=== PATIENT | female | born 1960 | race Caucasian/White ===

== ENCOUNTER 2017-09-03 06:26 | Day surgery (SDC) | payer BC ==
[~2017-09-03 06:26] MED LIST: Dextrose 5%-0.45% NaCl 1,000 ML IV SCH; Midazolam 1 MG/ML 2 ML SDV ONE; Sodium Chloride 0.9% 10 ML Syringe FLUSH PRN; fentaNYL 100 MCG/2 ML SDV ONE
[2017-09-03] MEDS ORDERED: Midazolam 1 MG/ML 2 ML SDV IV ONE ×4 (06:27→07:28)
[2017-09-03] MEDS ORDERED: fentaNYL 100 MCG/2 ML SDV IV ONE ×3 (06:27→07:26)
--- NOTE | 2017-09-03 13:17 | OR ---
DATE: 09/03/2017 PROCEDURE: Total colonoscopy. INSTRUMENT USED: PCF-H180AL Olympus video colonoscope. PREMEDICATIONS: Fentanyl 100 mcg intravenous, Versed 3 mg intravenous. Nasal O2 cannula. The procedure was done under pulse oximetry, BP recording, and demand planning analyst. INDICATION: The patient with status post left colon resection for adenocarcinoma. Surveillance colonoscopic examination is done for detection of any polypoid lesions and removal, endoscopic hemostasis therapy if needed. DESCRIPTION OF PROCEDURE: Initial rectal exam showed external hemorrhoidal tags. Rigid anoscopy showed small internal hemorrhoids without bleeding from them. The colonoscope was passed with ease. Photograph was taken of the surgical site. The scope was passed with ease up to the ileocecal area, photographs were taken of the normal-appearing cecum identified by landmarks of appendiceal orifice and double-bulged ileocecal folds. No bleeding was noted from any of the visualized areas at the commencement of the examination. No stricture. No vascular ectasia. No large isolated ulcerations seen. No evidence of diffuse inflammatory bowel disease in the form of friability, contact bleeding, or ulcerations. No polyp or tumor mass identified. Probing the proximal sides of folds and flexures, using adequate distention and clearing off the stool material, withdrawal of the scope was made. Cecum to rectum time over 6 minutes. No bleeding was noted from any of the visualized areas at the completion of examination. IMPRESSION: External and internal hemorrhoids. The patient tolerated the procedure well. [facility] /[id number]
--- NOTE | 2017-09-03 13:50 | LETTER ---
09/03/2017 Kimani Waite MD [facility] [address] [place] [address] RE: JEMMA DE : [address] Waite: Ms. Jemma De had colonoscopic examination done this morning and she tolerated the procedure well. I herewith send a copy of the endoscopy note and photographs for your review. Thank you. Sincerely, [facility] /[id number]
== END 2017-09-03 09:42 | disposition home or self-care (01) ==
LOC: DL.ENDO 06:26
PROVIDERS: ATTEND Internal Medicine Gastroenterology
DX: Z12.11 Encounter for screening for malignant neoplasm of colon (principal); K64.8 Other hemorrhoids; K64.4 Residual hemorrhoidal skin tags; Z85.038 Personal history of other malignant neoplasm of large intestine
CPT/HCPCS: 45378; J2250; J3010; J7042

== ENCOUNTER 2019-06-13 06:33 | Day surgery (SDC) | payer BC ==
[2019-06-13] MEDS ORDERED: fentaNYL 100 MCG/2 ML SDV IV ONE ×3 (06:34→07:41)
[2019-06-13] MEDS ORDERED: Midazolam 1 MG/ML 2 ML SDV IV ONE ×3 (06:34→07:42)
--- NOTE | 2019-06-13 14:10 | OR ---
DATE: 06/13/2019 PROCEDURE PERFORMED: Esophagogastroduodenoscopy and multiple pinch biopsies. INSTRUMENT USED: GIF-HQ190 Olympus video panendoscope. PREMEDICATIONS: No oral or topical anesthesia used. Fentanyl 100 mcg intravenous, Versed 2 mg intravenous. Nasal O2 cannula. The procedure was done under pulse oximetry, BP recording, and supervisor wall mirror department. INDICATION: The patient with persistent high dysphagia and dyspepsia unexplained, on long-term aspirin. Esophagogastroduodenoscopy was performed for detection of any active erosive lesions, Phelps esophagus and/or malignancy also under consideration, H. pylori status to be determined, esophageal dilatations if indicated, endoscopic hemostasis therapy if needed. DESCRIPTION OF PROCEDURE: The scope was passed with ease. Adequate visualization of the esophagus was made from proximal to distal areas. No upper esophageal lesions identified. No distal esophageal stricture. No uphill or downhill esophageal varices. No Mackenzie-Vásquez tear. Grade A erosive changes were noted by [place] criteria. No esophageal polyp or tumor mass identified. Some prominent benign-appearing folds were noted at the Z-line, multiple pinch biopsies were obtained and sent for histopathology. No proximal gastric varices noted. Gastric fundus examination by retroflexion showed no malignant lesions. In the mid gastric body, diminutive benign-appearing polyp was noted, photograph was taken, multiple pinch biopsies were obtained. No gastric ulcer, malignant mass, or vascular ectasia identified. Multiple pinch biopsies were taken from the gastric antrum and proximal body and sent for PyloriTek test for H. pylori and histopathology. Duodenal bulb showed no ulcer. Visualized second part of the duodenum unremarkable. No bleeding was noted from any of the visualized areas at the completion of examination. Photographs were taken of the duodenal bulb, gastric antrum, fundus, and distal esophagus. IMPRESSION: 1. Grade A gastroesophageal reflux disease. 2. Diminutive gastric body polyp. The patient tolerated the procedure well. [facility] /[id number]
== END 2019-06-13 09:58 | disposition home or self-care (01) ==
LOC: DL.ENDO 06:33
PROVIDERS: ATTEND Internal Medicine Gastroenterology
DX: K21.0 Gastro-esophageal reflux disease with esophagitis (principal); K25.9 Gastric ulcer, unspecified as acute or chronic, without hemorrhage or perforation; K31.7 Polyp of stomach and duodenum; E11.9 Type 2 diabetes mellitus without complications; E78.5 Hyperlipidemia, unspecified; I10 Essential (primary) hypertension; E66.09 Other obesity due to excess calories; Z79.82 Long term (current) use of aspirin; Z85.038 Personal history of other malignant neoplasm of large intestine; Z90.49 Acquired absence of other specified parts of digestive tract; Z68.37 Body mass index [BMI] 37.0-37.9, adult
CPT/HCPCS: 43239; 87077; J2250; J3010; J7042

== ENCOUNTER 2024-02-07 05:54 | Day surgery (SDC) | payer MEDICARE, BC ==
[2024-02-07] MEDS ORDERED: Midazolam 1 MG/ML 2 ML SDV IV ONE (05:55)
[2024-02-07] MEDS ORDERED: fentaNYL 100 MCG/2 ML SDV IV ONE (05:55)
[2024-02-07] MEDS ORDERED: Midazolam 1 MG/ML 2 ML SDV ONE (06:11)
[2024-02-07] MEDS ORDERED: fentaNYL 100 MCG/2 ML SDV ONE (06:11)
[2024-02-07] MEDS: Dextrose 5%-0.45% NaCl 1,000 ML IV SCH (06:30)
[2024-02-07] MEDS: fentaNYL 100 MCG/2 ML SDV IV ONE ×2 (07:02→07:03)
[2024-02-07] MEDS: Midazolam 1 MG/ML 2 ML SDV IV ONE ×3 (07:03→07:09)
== END 2024-02-07 08:50 | disposition home or self-care (01) ==
LOC: DL.ENDO 05:54
PROVIDERS: ATTEND Internal Medicine Gastroenterology
DX: Z12.11 Encounter for screening for malignant neoplasm of colon (principal); K64.4 Residual hemorrhoidal skin tags; E78.5 Hyperlipidemia, unspecified; I10 Essential (primary) hypertension; G47.33 Obstructive sleep apnea (adult) (pediatric); Z85.038 Personal history of other malignant neoplasm of large intestine; Z88.8 Allergy status to other drugs, medicaments and biological substances
CPT/HCPCS: G0105; J2250; J3010; J7799